=== PATIENT | female | born 1945 | race Caucasian/White ===

== ENCOUNTER 2024-03-14 12:12 | Observation (INO) ==
--- NOTE | 2024-02-29 12:10 | Anesthesiology Consultation ---
Date of Service February 29, 2024 Assessment & Plan (1) Encounter for pre-operative examination: - Infectious disease screening: Per assessment on 02/29/24: No known recent infectious disease contacts or current infectious disease symptoms. - General surgery visit (01/09/24): "It does appear as though her pain is related to her hiatal hernia. She also has acid reflux although the symptoms are being managed. We discussed that there is nothing showing on her workup that would mandate she have this repaired. There does not appear to be any gastric injury and she is still able to eat. However her main concern is the constant pressure up under her rib cage in the midportion of her abdomen with radiation into the back. This is worsened by bending. The option would be to laparoscopically repair the hiatal hernia. I would also recommend at least a partial fundoplication to help reduce her acid reflux as well as to help prevent recurrence in the future. Because of her hiatal hernia I suspect they would have difficulty performing manometry and therefore I am recommending a partial or 270 degree type of wrap.. I was adamant about wanting her to lose somewhere between 5 and 10 pounds and I am going to give her 6 to 8 weeks to do this. She agrees with the plan and we will schedule her in the near future for laparoscopic repair of hiatal hernia as well as partial or Toupet fundoplication." Chart Review Chart Review: Acceptable Risk for Surgery and Patient NOT seen in Pre Admission Testing History Surgery Operation Date: 03/14/24 07:00 Proposed Procedures p Laparoscopic Hiatal Hernia Repair with Toupet Fundoplication - Julius Woods, DO Height/Weight Height: 5 ft Weight: 83.007 kg Allergies Allergy/AdvReac Type Severity Reaction Status Date / Time codeine Allergy Unknown Tachycardia Verified 02/29/24 11:11 Sulfa (Sulfonamide Allergy Unknown Tachycarda Verified 02/29/24 11:59 Antibiotics) Medications Home Medications Medication Instructions Recorded Confirmed Last Taken albuterol sulfate 90 mcg/actuation 2 puff inhalation QID PRN 06/17/22 02/29/24 3 Days Ago aerosol inhaler Shortness Of Breath ~07/07/23 cholecalciferol (vitamin D3) 50 50 mcg PO QAM 06/17/22 02/29/24 2 Weeks Ago mcg (2,000 unit) tablet (Vitamin ~06/26/23 D3) lansoprazole 30 mg capsule,delayed 30 mg PO QAM 06/17/22 02/29/24 07/09/23 07:00 release umeclidinium 62.5 mcg-vilanterol 1 inh inhalation QAM 06/17/22 02/29/24 07/09/23 07:00 25 mcg/actuation powdr for inhalation (Anoro Ellipta) vit C 250 mg-vit E 90 mg-zinc 40 1 tab PO BID 06/17/22 02/29/24 2 Weeks Ago mg-copper 1 [id number] ~06/26/23 capsule (PreserVision AREDS-2) acetaminophen 500 mg tablet 1,000 mg PO Q6H PRN Pain 06/27/23 02/29/24 07/08/23 triamcinolone acetonide 0.5 % 1 applic topical DAILY #15 grams 07/10/23 02/29/24 Unknown topical cream polyvinyl alcohol 1.4 % eye drops 1 drp ophthalmic (eye) DAILY PRN 01/09/24 02/29/24 Unknown (Artificial Tears (polyvinyl Dry Eyes alcohol)) cholecalciferol (vitamin D3) 50 50 mcg PO DAILY 02/29/24 02/29/24 Unknown mcg (2,000 unit) tablet (Vitamin D3) Past Medical History Medical History Chronic obstructive pulmonary disease Hepatic steatosis Hiatal hernia with GERD large (5cm) hiatal hernia per 07/2022 imaging History of colon polyps History of COVID-19 08/2021- Cold/sinus symptoms/cough, Rx Paxlovid > symptoms resolved Migraine Obesity Seasonal allergies Past Family History Family History Sister Cancer Sister Cancer Myocardial infarction Hypertension Sister Cancer Diabetes Mother Diabetes Past Surgical History Surgical History History of esophagogastroduodenoscopy (EGD) EGD/EUS 12/2023: large hiatal hernia, tortuous esophagus, CBD dilation felt r/t large duodenal diverticulum, findings consistent with fatty liver History of partial hysterectomy History of surgery lip surgery 2019 History of surgical procedure on eye proper using laser Hx of bladder repair surgery Hx of cataract extraction B/L staged in 2021; MAC without issue Hx of colonoscopy (07/10/23) Nausea and vomiting after administration of anesthetic agent After partial hysterectomy, no similar issue with subsequent bladder surgery Social History Smoking Status: Former smoker Do You Dip or Chew Tobacco: No Smoking End Date: quit 2016 Hx Alcohol Use: No Alcohol type: wine alcohol intake frequency: holidays/special occasions only Hx Substance Use: No substance use type: does not use Lab Results Anesthesia Preop Results Results Anesthesia Widget: WBC 5.30 K/ul (4.8-10.8) 02/21/24 Hgb 13.5 g/dl (12.0-16.0) 02/21/24 Hct 42.7 % (37.0-47.0) 02/21/24 Plt 205 K/uL (130-400) 02/21/24 Na 139 mmol/L (136-145) 02/21/24 K 4.2 mmol/L (3.5-5.1) 02/21/24 Cl 105 mmol/L (98-107) 02/21/24 CO2 28 mmol/L (21-32) 02/21/24 BUN 14 mg/dl (6-23) 02/21/24 Creat 0.82 mg/dl (0.6-1.2) 02/21/24 Glucose Level 103 mg/dl (70-99(Fasting)) H 02/21/24 Testing Electrocardiogram Date: 06/14/23 Findings: + NSR @ (99)
[2024-03-14] MEDS: LR 15ML/HR IV SCH (12:37)
[2024-03-14] MEDS ORDERED: ATROPINE SULFATE 0.1 MG/ML 10ML SYR IV PRN (12:56)
[2024-03-14] MEDS ORDERED: ONDANSETRON INJ 2 MG/ML 2 ML VIAL IV PRN (12:56)
[2024-03-14] MEDS ORDERED: PROMETHAZINE HCL 6.25 MG in SODIUM CHLORIDE 0.9% 50 ML IV PRN (12:56)
[2024-03-14] MEDS ORDERED: ePHEDrine sulfate 50 MG/ML AMP IV PRN (12:56)
[2024-03-14] MEDS ORDERED: ONDANSETRON INJ 2 MG/ML 2 ML VIAL ONE (13:17)
[2024-03-14] MEDS ORDERED: fentaNYL citrate PF 100 MCG/2 ML VIAL ONE ×2 (13:17→15:32)
[2024-03-14] MEDS ORDERED: SUGAMMADEX SODIUM 200 MG/2 ML VIAL IV ONE (13:17)
[2024-03-14] MEDS ORDERED: DEXAMETHASONE SOD INJ 4 MG/ML VIAL ONE (13:17)
[2024-03-14] MEDS ORDERED: PROPOFOL IV EMULSION 10 MG/ML 20 ML VIAL IV ONE (13:17)
--- NOTE | 2024-03-14 14:27 | History & Physical Report ---
Date of Service March 14, 2024 Assessment & Plan (1) Hiatal hernia with GERD: Plan: We discussed the procedure today. We discussed potential risks. She will be staying overnight at least 1 night afterwards. I have answered all of her questions. Will proceed with laparoscopic hiatal hernia repair with partial fundoplication. (2) Obesity: History of Present Illness Primary Care Provider: Alisha Curtis DO Ludy is here for repair of a symptomatic hiatal hernia and acid reflux. There is been no changes to her health history since I seen her in the office. She was able to lose about 12 pounds. Allergies Allergy/AdvReac Type Severity Reaction Status Date / Time codeine Allergy Unknown Tachycardia Verified 03/14/24 12:29 Sulfa (Sulfonamide Allergy Unknown Tachycarda Verified 03/14/24 12:29 Antibiotics) Home Medications Medication Instructions Recorded Confirmed Type albuterol sulfate 90 mcg/actuation 2 puff inhalation QID PRN 06/17/22 03/14/24 History aerosol inhaler Shortness Of Breath cholecalciferol (vitamin D3) 50 50 mcg PO QAM 06/17/22 03/14/24 History mcg (2,000 unit) tablet (Vitamin D3) lansoprazole 30 mg capsule,delayed 30 mg PO QAM 06/17/22 03/14/24 History release umeclidinium 62.5 mcg-vilanterol 1 inh inhalation QAM 06/17/22 03/14/24 History 25 mcg/actuation powdr for inhalation (Anoro Ellipta) vit C 250 mg-vit E 90 mg-zinc 40 1 tab PO BID 06/17/22 03/14/24 History mg-copper 1 oz-stfpwh-[id number] capsule (PreserVision AREDS-2) acetaminophen 500 mg tablet 1,000 mg PO Q6H PRN Pain 06/27/23 03/14/24 History triamcinolone acetonide 0.5 % 1 applic topical DAILY #15 grams 07/10/23 03/14/24 Rx topical cream polyvinyl alcohol 1.4 % eye drops 1 drp ophthalmic (eye) DAILY PRN 01/09/24 03/14/24 History (Artificial Tears (polyvinyl Dry Eyes alcohol)) cholecalciferol (vitamin D3) 50 50 mcg PO DAILY 02/29/24 03/14/24 History mcg (2,000 unit) tablet (Vitamin D3) Past Med/Surg History Problem List Encounter for pre-operative examination Medical History Chronic obstructive pulmonary disease Hepatic steatosis Hiatal hernia with GERD large (5cm) hiatal hernia per 07/2022 imaging History of colon polyps History of COVID-19 08/2021- Cold/sinus symptoms/cough, Rx Paxlovid > symptoms resolved Migraine Obesity Seasonal allergies Surgical History History of esophagogastroduodenoscopy (EGD) EGD/EUS 12/2023: large hiatal hernia, tortuous esophagus, CBD dilation felt r/t large duodenal diverticulum, findings consistent with fatty liver History of partial hysterectomy History of surgery lip surgery 2019 History of surgical procedure on eye proper using laser Hx of bladder repair surgery Hx of cataract extraction B/L staged in 2021; MAC without issue Hx of colonoscopy (07/10/23) Nausea and vomiting after administration of anesthetic agent After partial hysterectomy, no similar issue with subsequent bladder surgery Family History Sister Cancer Sister Cancer Myocardial infarction Hypertension Sister Cancer Diabetes Mother Diabetes Social History Smoking Status: Former smoker Tobacco Type: Cigarettes Smoking End Date: quit 2016; Second Hand Exposure: Yes (hx); Do You Dip or Chew Tobacco: No; Tobacco Cessation Education Requested by Patient: No Hx Alcohol Use: No Hx Substance Use: No Preferred Language: Cypriot Communication Ability: Effective Credit Correspondence Clerk Required: No Beliefs That Will Affect Care: None marital status: / Current Living Situation: Alone Current Living Situation Comment: has family that lives close current occupational status: retired How many Children do You have: 3 Other Information That Helps Us Care for You: No Feels Safe at Home: Yes Safety Concerns: Feels Safe At This Time Diet: regular during the past year weight has: remained stable Assistive Devices: Denture - Upper and Denture - Lower Review of Systems All systems reviewed & are unremarkable except as noted in HPI & below Physical Exam Constitutional: WD/WN, vitals as above no acute distress and not ill appearing Eyes: PERRL, conjunctivae normal, anicteric sclerae EOM intact bilaterally ENMT: external ear and nose normal, oropharynx normal Ears: no hearing impairment Neck: trachea midline, no thyromegaly Respiratory: normal respiratory effort; no respiratory distress and does not use accessory muscles Cardiovascular: Rate/Rhythm: regular rate and regular rhythm Gastrointestinal (Abdomen): normal bowel sounds, soft, nontender, no hepatosplenomegaly Skin: no rashes, warm and dry Psychiatric: Orientation: alert, oriented x 3 and cooperative Results & Data Vital Signs (Past 12 Hours) Vital Signs Temp Pulse Resp BP Pulse Ox O2 Del Method 03/14/24 12:50 36.7 C 105 H 20 165/109 H 93 Room Air
[2024-03-14] MEDS: ceFAZolin 2000MG 2,000 MG/15 ML SYR IV SCH ×2 (15:00→22:26)
[2024-03-14] MEDS ORDERED: METOCLOPRAMIDE HCL INJ 5 MG/ML 2 ML VIAL ONE (15:24)
[2024-03-14] MEDS ORDERED: diphenhydrAMINE 50 MG/ML VIAL ONE (15:24)
[2024-03-14] MEDS ORDERED: ESMOLOL HCL INJ 10 MG/ML 10ML VIAL IV ONE (15:42)
[2024-03-14] MEDS ORDERED: ROCURONIUM BROMIDE 10 MG/ML 5 ML VIAL IV ONE (15:47)
[2024-03-14] MEDS ORDERED: PHENYLEPHRINE HCL 10 MG/ML VIAL ONE (16:05)
[2024-03-14] MEDS: BUPIVACAINE/EPINEPHRINE 0.5% MPF 1:200,000 30 ML VIAL ONE (16:18)
--- NOTE | 2024-03-14 16:35 | Operative Report ---
PG Post Operative Report Pre & Post Diagnosis Operation Date: 03/14/24 13:15 Pre-Op Diagnosis: Hiatal Hernia;gerd Post-Op Diagnosis: Hiatal Hernia;gerd I identified the patient and participated in the time-out.: Yes Procedure Operation Date: 03/14/24 13:15 Actual Procedures p Laparoscopic Hiatal Hernia Repair with Toupet Fundoplication(Not Applicable); posterior gastropexy - Julius Woods DO Surgeon Julius Woods DO Waiter/Waitress Tourist Class lauri Malhotra Estimated Blood Loss 25 Findings Consistent with Post-Op Diagnosis Specimens none Description of Procedure After informed consent was obtained the patient was taken to the operating room and placed in supine position. After successful intubation an orogastric tube was placed and the abdomen was sterilely prepped and draped in usual fashion. I began with a supraumbilical incision. This was carried down through the soft tissue using cautery. Anterior fascia was opened using cautery and two #0 Vicryl stay sutures were placed. Peritoneum was entered using blunt finger penetration and a finger sweep performed. A 12 mm Graham trocar was placed and the abdomen was insufflated to 18 mmHg. Laparoscope was inserted and the abdomen examined 360 degrees. A subxiphoid 5 mm port right upper quadrant 12 mm port right flank 5 mm port and left flank 5 mm port were all placed under direct vision. The patient was placed in a reverse Trendelenburg position. A liver retractor was used throughout the case to elevate the left lobe of the liver. After elevating the left lobe of the liver this exposed a moderate size probably 5 cm hiatal hernia. Approximately 30% of the stomach was incarcerated within it. I was able to easily reduce the stomach. I began by having anesthesia pass a 50 Kinyarwanda bougie which was done easily. The harmonic scalpel was then used to take down the hernia sac in 360 degrees starting along the right crura of the diaphragm coming up anteriorly and over and on to the left crura of the diaphragm. Once we had this fully mobilized I then was able to elevate the stomach and identified the defect posteriorly. 0 Surgidac with a Endo Stitch device was used to close the crural defect posteriorly initially followed by several stitches anteriorly. Diaphragm itself was rather thin and atrophic. Once I had the defect completely closed I then created a retrogastric window using blunt dissection. Next we used the harmonic scalpel to take down the top 4 short gastric vessels. Next I used a reticulating grasper to come through the retrogastric window. I was able to grasp the fundus of the stomach and pull it through this window easily and without tension. I was able to easily perform shoeshine test. The stomach was pexed posteriorly from the fundus to the right crura of the diaphragm. Again this was done using 0 Surgidac. Once this was accomplished I then completed the 270 degree fundoplication by grasping a portion of the preesophageal fat pad and securing it medially to the fundus of the stomach and performing the same maneuver by grasping the body of the stomach laterally and again grasping some of the preesophageal fat pad. The stomach itself was not twisted. I decided to also go ahead and perform a gastropexy by grasping the body of the stomach and securing this to the left crura of the diaphragm. Thorough irrigation was performed. There was adequate hemostasis. No other gross abnormalities were seen. The liver retractor as well as the trocars were all removed and the abdomen desufflated. The fascia the camera port was closed using 0 Vicryl in a ayirid-ix-nymji fashion. All the wounds were irrigated closed using 4-0 Monocryl. Marcaine with epinephrine was injected around the incisions for postoperative analgesia and skin glue used as a dressing. The patient was awakened extubated transferred recovery in stable condition. My physician medical records assistant was present through the entire case was inst rumental in assisting all aspects of the case. She was instrumental in running the camera providing exposure assisting with the fundoplication wound closure and dressing placement. I attest to the content of the Intraoperative Record and any orders documented therein. Any exceptions are noted below.
[2024-03-14] MEDS: fentaNYL citrate PF 100 MCG/2 ML VIAL IV PRN (16:50)
[2024-03-14] MEDS: HYDROmorphone INJ 2 MG/ML SYR/VIAL IV PRN (17:20)
--- NOTE | 2024-03-14 17:47 | Anesthesiology Progress Note ---
Date of Service March 14, 2024 Anesthesia Post Procedure Vital Signs Vital Signs: Temp Pulse Pulse Resp BP Pulse Ox O2 Del Method 03/14/24 17:45 36.4 C L 96 H 14 112/73 97 Nasal Cannula 03/14/24 17:35 98 H 12 124/67 94 Nasal Cannula 03/14/24 17:25 92 H 12 135/72 95 Nasal Cannula 03/14/24 17:15 36.2 C L 89 13 136/76 96 Nasal Cannula 03/14/24 17:05 92 H 12 146/86 H 96 Oxymask 03/14/24 16:55 93 H 15 136/83 99 Oxymask 03/14/24 16:45 36.7 C 101 H 21 158/96 H 98 Oxymask 03/14/24 16:36 36.0 C L 91 H 14 138/69 100 Oxymask 03/14/24 12:50 36.7 C 105 H 20 165/109 H 93 Room Air O2 Flow Rate 03/14/24 17:45 3 03/14/24 17:35 3 03/14/24 17:25 3 03/14/24 17:15 3 03/14/24 17:05 1 03/14/24 16:55 3 03/14/24 16:45 3 03/14/24 16:36 5 03/14/24 12:50 Pain Intensity Abdomen: Pain Intensity: 4 Transfer of Care Handoff Completed per policy Notes Mental Status: alert / awake / arousable Patient Amnestic to Procedure: Yes Nausea / Vomiting: adequately controlled Pain: adequately controlled Airway Patency, RR, SpO2: stable & adequate BP & HR: stable & adequate Hydration State: stable & adequate Anesthetic Complications: no major complications apparent and Pt Satisfied with anesthetic care
[2024-03-14] MEDS ORDERED: ACETAMINOPHEN 1,000 MG/100 ML VIAL IV PRN (18:04)
[2024-03-14] MEDS ORDERED: MoRPHine SULFATE 4 MG/ML 1 ML CARP\\VIAL IV PRN (18:04)
[2024-03-14] MEDS ORDERED: ALBUTEROL HFA 8 GM INHALER INH PRN (18:04)
[2024-03-14] MEDS ORDERED: traMADol HCL 50 MG TABLET PO PRN (18:04)
[2024-03-14] MEDS ORDERED: MoRPHine SULFATE 2 MG/ML CARP IV PRN (18:04)
[2024-03-14] MEDS: LACTATED RINGER'S 1,000 ML IV SCH (18:22)
[2024-03-14] MEDS: ONDANSETRON INJ 2 MG/ML 2 ML VIAL IV PRN (19:40)
[2024-03-15] MEDS: ACETAMINOPHEN 325 MG TAB PO PRN (07:27)
[2024-03-15] MEDS: UMECLIDINIUM/VILANTEROL 62.5/25MCG 7 PUFFS/INHALER INH SCH (08:28)
[2024-03-15] MEDS: PANTOprazole 40 MG TAB PO SCH (08:28)
[2024-03-15 08:52] LABS: Basophils # (auto) 0.01 K/uL (0.00-0.20); Basophils % (auto) 0.1 %; Hematocrit (blood only) 38.5 % (37.0-47.0); Hemoglobin 12.1 g/dl (12.0-16.0); Immature Granulocytes # (auto) 0.06 K/uL (0.01-0.20); Immature Granulocytes % (auto) 0.7 %; Lymphocytes # (auto) 0.75 K/uL (1.20-3.40); Lymphocytes % (auto) 8.4 %; Mean Corpuscular Hemoglobin 30.3 pg (25.0-34.0); Mean Corpuscular Hgb Conc 31.4 g/dL (32.0-36.0); Mean Corpuscular Volume 96.5 fL (80.0-100.0); Mean Platelet Volume 10.8 fL (9.4-12.4); Monocytes # (auto) 0.52 K/uL (0.11-0.59); Monocytes % (auto) 5.8 %; Neutrophils # (auto) 7.59 K/uL (1.40-6.50); Platelet Count 192 K/uL (130-400); RDW Coefficient of Variation 14.4 % (11.5-14.5); RDW Standard Deviation 51.2 fL (36.4-46.3); Red Blood Count 3.99 M/uL (4.20-5.40); White Blood Count 8.93 K/ul (4.8-10.8)
--- NOTE | 2024-03-15 09:10 | Surgery Progress Note ---
Date of Service March 15, 2024 Assessment & Plan (1) History of repair of hiatal hernia: Plan: doing as expected POD 1 will re-eval this afternoon. if no problems this AM will d/c later this afternoon. Admission and Anticipated Discharge Date Admission Date: March 14, 2024 Subjective pt seen. feeling better now but had emesis several times last night. chevy clears this am. no nausea. pain controlled. Physical Exam Physical Exam: soft. expected tenderness. Results & Data Vital Signs (Past 12 Hours) Vital Signs Temp Pulse Pulse Resp BP Pulse Ox O2 Del Method 03/15/24 08:26 36.4 C L 100 H 20 130/74 94 Nasal Cannula 03/15/24 07:20 Nasal Cannula 03/15/24 03:17 37.1 C 105 H 18 115/68 94 Nasal Cannula 03/14/24 23:27 36.8 C 100 H 14 121/78 94 Nasal Cannula O2 Flow Rate 03/15/24 08:26 03/15/24 07:20 2 03/15/24 03:17 2 03/14/24 23:27 2 PG Care Time/CCT Total # of Minutes Spent Total Time Spent with Patient: Total time spent is greater than 50% in coordination of care (as documented) at patient's floor/unit and/or counseling patient: Coding Level of Care Code 94863 Post Operative Follow-Up Diagnoses History of repair of hiatal hernia Z98.890; Z87.19
[2024-03-15 09:21] LABS: Albumin Globulin Ratio 1.4 (0.9-2); Albumin Level 3.7 gm/dl (3.4-5.0); BUN Creatinine Ratio 21.7 (10-20); Bilirubin,Total 0.4 mg/dl (0.2-1.0); Calcium 8.4 mg/dl (8.6-10.3); Creatinine Clr Calc Pharmacy 64.4 ml/min; Est GFR (African American) 96.6 ml/min; Est GFR (Non-African American) 83.4 ml/min; Globulin 2.6 gm/dl (2.5-4.0); Potassium 4.2 mmol/L (3.5-5.1); Total Protein 6.3 gm/dl (6.0-8.3)
--- NOTE | 2024-03-15 13:28 | Communication Note ---
Date of Service: March 15, 2024 visited patient at bedside. She reports she has tolerated her lunch without N/v. Pain is controlled. patient wearing O2, O2 removed SpO2 94 % on RA. Patient stable for d/c , reviewed return precautions, questions answered.
--- NOTE | 2024-03-15 13:37 | Discharge Summary ---
Date of Service March 15, 2024 Admission HPI Per Admitting Provider Ludy is here for repair of a symptomatic hiatal hernia and acid reflux. There is been no changes to her health history since I seen her in the office. She was able to lose about 12 pounds. Principal Diagnosis Laparoscopic Hiatal Hernia Repair with Toupet Fundoplication Discharge Exam Constitutional cooperative and comfortable; no acute distress Respiratory normal respiratory effort and able to speak in complete sentences; no respiratory distress Cardiovascular Rate/Rhythm: regular rate Gastrointestinal (Abdomen) Inspection/Auscultation: + abdominal surgical incision (CDI); abdomen not distended Discharge Data Allergies Allergy/AdvReac Type Severity Reaction Status Date / Time codeine Allergy Unknown Tachycardia Verified 03/14/24 12:29 Sulfa (Sulfonamide Allergy Unknown Tachycarda Verified 03/14/24 12:29 Antibiotics) Procedures Performed Operation Date: 03/14/24 13:15 Actual Procedures p Laparoscopic Hiatal Hernia Repair with Toupet Fundoplication(Not Applicable) - Julius Woods, DO Hospital Course (1) History of repair of hiatal hernia: Patient is a 79 yo female that presented to [facility] on 03/14/24 for an elective Laparoscopic Hiatal Hernia Repair with Toupet Fundoplication with Dr. Woods. She was admitted to the hospital post procedure for care and observation. She was started on a clear liquid diet and reported that she had 2 episodes of emesis, one over night and one early in the AM. On post operative day one she reported mild expected abdominal discomfort, and no nausea. She tolerated her breakfast and lunch without nausea or vomiting. Her WBC are WNL and her post operative port site CDI , dermabond. Her Vital signs remained stable throughout her stay. She was deemed stable for discharge on 03/15/24 and was given a presc ription for oral zofran and pain medication. She verbalized understanding of discharge instructions, return precautions and follow up appointments. Total Time Total Time Spent Total Time Spent (In Minutes): 10 Discharge Plan Discharge Items Patient Disposition: Home - Self-Care Reason For Visit: Hiatal Hernia Discharge Diagnosis: hiatal hernia repair Activity: Per Instructions section Lifting: No more than 10 pounds Bathing Comment: may shower starting 03/15/24; no soaking in tubs/pools x 2 weeks Exercise/Sports: Wait until after follow-up appointment Non-emergency contact: Surgeon Call non-emergency contact if: you have any medication questions, your symptoms worsen, your pain is worsening, you have a fever, your temperature is above 101.5, your wound has increased redness, your wound has increased drainage and your wound pain has increased Follow-up/Referrals: Julius Woods, [Surgeon] - (please call to schedule follow up in clinic within 7-10 days ) Alisha Curtis DO [Primary Care Provider] - Diet: Other - See Diet Comment Addtl Attending Provider Instructions: You have skin glue over your incisions called dermabond. you may shower with this on. It will tend to dissolve and fall off within a couple weeks. Do not pick at the skin glue resume a liquidy diet as discussed with dr. woods. anything you can stick a spoon through, such as jello/yogurt/puddings/oatmeal/shakes, etc. A prescription was sent in to your pharmacy for nausea and for pain, you may take as directed. Pending Studies at Discharge: No Stand-Alone Forms: My [facility] Medications and DC Order Prescriptions: New tramadol 50 mg tablet 50 mg PO Q6H MDD 4 Qty: 10 0RF ondansetron HCl 4 mg tablet 4 mg PO TID PRN (Reason: nausea) 5 Days Qty: 15 0RF Continued triamcinolone acetonide 0.5 % cream 1 applic topical DAILY Qty: 15 0RF polyvinyl alcohol [Artificial Tears (polyvin alc)] 1.4 % drops 1 drp ophthalmic (eye) DAILY PRN (Reason: Dry Eyes) lansoprazole 30 mg Capsule,Delayed Release(Dr/Ec) 30 mg PO QAM albuterol sulfate 90 mcg/actuation Hfa Aerosol Inhaler 2 puff INHALATION QID PRN (Reason: Shortness Of Breath) cholecalciferol (vitamin D3) [Vitamin D3] 50 mcg (2,000 unit) Tablet 50 mcg PO QAM PreserVision AREDS-2 250-90-40-1 mg Capsule 1 tab PO BID Anoro Ellipta 62.5-25 mcg/actuation Blister With Device 1 inh INHALATION QAM acetaminophen 500 mg Tablet 1,000 mg PO Q6H PRN (Reason: Pain) cholecalciferol (vitamin D3) [Vitamin D3] 50 mcg (2,000 unit) Tablet 50 mcg PO DAILY Discharge Orders: Discharge Order (Routine); Ordered 03/15/24 Ordered By: Donald Wood Admission Data Admit Date/Time: 03/14/24 15:20 Attending Provider: Julius Woods Admit Provider: Julius Woods Primary Care Provider: Alisha Curtis Coding Level of Care Code 60680 IN/OBS DISCH 30 MIN/LESS Diagnoses History of repair of hiatal hernia Z98.890; Z87.19
== END 2024-03-15 15:18 | disposition home or self-care (01) | DRG 328 ==
LOC: ASU 12:12 → INTOOBSV 15:20 → 3E 15:20